=== PATIENT | male | born 1995 | race Caucasian/White ===

== ENCOUNTER 2018-02-18 13:08 | Emergency (ER) | payer BC, OTHER ==
[~2018-02-18 13:08] MED LIST: NOVORP2 SQ
[2018-02-18 13:16] VITALS: BP 153/74; PULSE 88; RESP 16; TEMP 98.5; O2SAT 99
[2018-02-18] MEDS ORDERED: NOVONP2 SQ (13:27)
[2018-02-18] MEDS ORDERED: NOVORP2 SQ (13:27)
--- NOTE | 2018-02-18 13:30 | PD ---
HPI Chief Complaint: Medical Clearance Time Seen by Provider: 13:27 Travel History International Travel<30 days: No Contact w/Intl Traveler<30days: No Traveled to known affect area: No History of Present Illness HPI 22-year-old male presents emergency department for evaluation of an elevated blood sugar that was found this morning. Says that he was at work when he took his blood sugar and found that it was over 600. His work advised to come to the emergency department for further evaluation. Patient denies fever, chills, chest pain, shortness of breath, abdominal pain, nausea, vomiting, diarrhea. He also denies blurred vision or headaches. Says that he feels fine and believed that the blood sugar check was erroneous. He says that he was diagnosed with type 1 diabetes a couple months ago and has been unable to follow -up with the primary care physician yet. Says he is planning on making an appointment with one this week as he has new insurance. Patient says that he takes medication regularly which includes insulin. He has no other complaints today. PFSH Past Medical History Anxiety: Yes Diabetes: Yes Patient Takes Glucophage: No Diminished Hearing: No Immunizations Current: Yes Social History Alcohol Use: Yes ([facility]) Tobacco Use: Yes (1/2 PPD) Substance Use: Yes ([facility]) Allergies-Medications (Allergen,Severity, Reaction): Coded Allergies: No Known Allergies (Verified Adverse Reaction, Unknown, 02/18/18) Reported Meds & Prescriptions Reported Meds & Active Scripts Active Reported Novolin N Inj (Insulin Human NPH) 1,000 Unit/10 Ml Vial 0 SQ BIDAC Sliding Scale As Directed. Novolin R Inj (Insulin Human Regular) 1,000 Unit/10 Ml Vial 1-9 Units SQ BIDAC Max dose at bedtime:( )units; sugars less than 70,(0) units; sugars 150-199,(1)unit; sugars 200-249,(3)units; sugars 250-299,(5) units; sugars 300-349,(7)units; sugars greater than 349,(9)units Review of Systems Except as stated in HPI: all other systems reviewed are Neg Physical Exam Narrative GENERAL: Well-nourished, well-developed patient, in NAD SKIN: Focused skin assessment warm/dry. No rashes or lesions. HEAD: Normocephalic. Atraumatic. EYES: No scleral icterus. No injection or drainage. THROAT:Airway is patent. NECK: Supple, trachea midline. No JVD. No meningismus. CARDIOVASCULAR: Regular rate and rhythm without murmurs, gallops, or rubs. RESPIRATORY: Breath sounds equal bilaterally. No accessory muscle use. No wheezes, rales, or rhonchi MUSCULOSKELETAL: No cyanosis, or edema. BACK: Nontender without obvious deformity. No CVA tenderness. Data Data Last Documented VS Vital Signs Date Time Temp Pulse Resp B/P (MAP) Pulse Ox O2 Delivery O2 Flow Rate FiO2 02/18/18 13:16 98.5 88 16 153/74 (100) 99 Orders Orders Ed Discharge Order (02/18/18 13:30) MDM Medical Decision Making Medical Screen Exam Complete: Yes Emergency Medical Condition: Yes Differential Diagnosis Hyperglycemia, hypoglycemia, glucose meter abnormality, medical clearance, DKA Narrative Course 22-year-old male presents emergency department at the request of his work for evaluation of an elevated blood sugar reading that was found today while at work. Patient says that he checks his blood sugar after breakfast and lunch every day at work and found today his blood sugars over 600. Upon arrival, his blood sugar was 117. Patient denies any complaints today. Patient is discharged advised to follow-up with his primary care physician. Discuss smoking cessation with the patient. He has no other concerns or complaints today. Diagnosis Primary Impression: Abnormal blood sugar Referrals: [facility] Departure Forms: Tests/Procedures, Work Release Enter return to work date: Feb 18, 2018 Special Instructions: Blood sugar normal in the ED today. Monitor as recommended previously. Additional Instructions: I recommend you call [facility] for an appointment until to get established by your primary care physician. Disposition: 01 DISCHARGE HOME Condition: Stable Maddi Tom Feb 18, 2018 13:29
== END 2018-02-18 13:30 | disposition home or self-care (01) ==
LOC: PHEFT 13:08
DX: E10.65 Type 1 diabetes mellitus with hyperglycemia (principal); F41.9 Anxiety disorder, unspecified; F17.200 Nicotine dependence, unspecified, uncomplicated; F12.90 Cannabis use, unspecified, uncomplicated
CPT/HCPCS: 99281